=== PATIENT | female | born 1990 | race Caucasian/White ===

== ENCOUNTER 2017-07-17 23:44 | Emergency (ER) | payer OTHER ==
[~2017-07-17] VITALS: Ht 157.5 cm; Wt 71.0 kg
[2017-07-18] MEDS ORDERED: ULTRAM50 MG PO (01:16)
[2017-07-18] MEDS ORDERED: PREDNISONE20 MG PO (01:16)
[2017-07-18] MEDS ORDERED: FLEXERIL10 MG PO (01:16)
[2017-07-18] MEDS ORDERED: MOBIC15 MG PO (01:16)
[2017-07-18 01:51] VITALS: BP 138/82
[2017-07-19] MEDS ORDERED: ATARAX,VISTARIL50 MG PO (12:41)
== END 2017-07-18 01:54 | disposition home or self-care (01) ==
LOC: EME 23:44 → EXP 23:44
DX: K08.89 Other specified disorders of teeth and supporting structures (principal); M26.609 Unspecified temporomandibular joint disorder, unspecified side; B19.20 Unspecified viral hepatitis C without hepatic coma; Z91.040 Latex allergy status; Z88.8 Allergy status to other drugs, medicaments and biological substances
CPT/HCPCS: 99281; 99284; J1885; J7512

== ENCOUNTER 2017-07-19 11:37 | Emergency (ER) | payer OTHER ==
[~2017-07-19 11:37] MED LIST: FLEXERIL10 MG PO; MOBIC15 MG PO; PREDNISONE20 MG PO; ULTRAM50 MG PO
[2017-07-19 12:08] LABS: HEMATOCRIT 38.2 % (36.0-46.0); MCH 31.7 PG (29.0-34.0); MCHC 34.3 G/DL (30.0-36.0); MCV 92.5 FL (83-99); MEAN PLAT.VOLUME 9.9 uM^3 (9.5-12.4); PLATELET COUNT 231 K/uL (156-360); RBC DIS.WIDTH-CV 12.2 % (11.8-14.6); RBC DIS.WIDTH-SD 41.5 % (39-53); RED BLOOD COUNT 4.13 M/uL (3.80-5.20); WHITE BLOOD COUNT 9.5 K/uL (4.1-10.2)
[2017-07-19 12:14] LABS: INTER. NORMALIZED RATIO 0.9; PROTHROMBIN TIME 10.2 SEC (10.2-12.9)
[2017-07-19 12:16] LABS: CHLORIDE 110 mEq/L (99-109); SODIUM 141 mEq/L (136-147)
[2017-07-19 12:17] LABS: PTT 28.2 SEC (25-37)
[2017-07-19 12:18] LABS: GLUCOSE 73 mg/dL (70-99)
[2017-07-19 12:20] LABS: ANION GAP 7 MEQ/L (2-14); TOTAL BILIRUBIN 0.3 mg/dL (0.0-1.0)
[2017-07-19 12:22] LABS: ALKALINE PHOSPHATASE 47 IU/L (3-129); GFR ESTIMATE (CALCULATED) > 59 mL/min/
[2017-07-19 12:23] LABS: UREA NITROGEN (BUN) 18 mg/dL (9-23)
[2017-07-19 12:33] LABS: QUANTITATIVE HCG < 4.0 MIU/ML
[2017-07-19] MEDS ORDERED: ATARAX,VISTARIL50 MG PO (12:41)
[2017-07-19 12:50] VITALS: BP 149/99
== END 2017-07-19 12:51 | disposition home or self-care (01) ==
LOC: EME 11:37
PROVIDERS: Physician Assistant
DX: F41.9 Anxiety disorder, unspecified (principal); F20.9 Schizophrenia, unspecified; F31.9 Bipolar disorder, unspecified; F17.200 Nicotine dependence, unspecified, uncomplicated; Z91.040 Latex allergy status; Z88.8 Allergy status to other drugs, medicaments and biological substances
CPT/HCPCS: 80053; 84702; 85027; 85610; 85730; 99281; 99283

== ENCOUNTER 2018-02-28 17:11 | Emergency (ER) | payer SELFPAY ==
[~2018-02-28] VITALS: Ht 157.5 cm; Wt 76.0 kg
[~2018-02-28 17:11] MED LIST changes: +ATARAX,VISTARIL50 MG PO; +DEPAKOTE ER500 MG PO; +EFFEXOR XR37.5 MG PO; +NAPROXEN500 MG PO; +SUBOXONE 4 MG-1 EACH SL; +ZYPREXA5 MG PO
[2018-02-28 18:55] LABS: ALBUMIN 4.4 g/dL (3.2-4.8)
[2018-02-28 18:56] LABS: CHLORIDE 105 mEq/L (99-109); POTASSIUM 4.2 mEq/L (3.7-5.4); SODIUM 141 mEq/L (136-147)
[2018-02-28 18:58] LABS: GLUCOSE 95 mg/dL (70-99); TOTAL PROTEIN 6.7 g/dL (6.4-8.3)
[2018-02-28 19:00] LABS: TOTAL BILIRUBIN 0.2 mg/dL (0.0-1.0)
[2018-02-28 19:01] LABS: ALKALINE PHOSPHATASE 68 IU/L (3-129)
[2018-02-28 19:02] LABS: CREATININE 0.8 mg/dL (0.6-1.3); GFR ESTIMATE (CALCULATED) > 59 mL/min/
[2018-02-28 19:03] LABS: AST (GOT) 16 IU/L (2-34); HEMATOCRIT 39.1 % (36.0-46.0); HEMOGLOBIN 13.7 G/DL (11.9-15.5); MCH 30.7 PG (29.0-34.0); MCV 87.7 FL (83-99); RBC DIS.WIDTH-SD 38.6 % (39-53); RED BLOOD COUNT 4.46 M/uL (3.80-5.20); TROP-I INTERPRETATION NEGATIVE; TROPONIN-I < 0.01 ng/mL (0.0-0.30); UREA NITROGEN (BUN) 19 mg/dL (9-23)
[2018-02-28 19:04] LABS: ALT (GPT) 13 IU/L (3-49)
[2018-02-28 19:10] LABS: QUANTITATIVE HCG < 4.0 MIU/ML
[2018-02-28] MEDS ORDERED: XANAX0.25 MG PO (19:24)
[2018-02-28 19:52] VITALS: BP 124/75
[2018-02-28 20:03] LABS: PLAT.SUFFICIENCY ADEQUATE; PLATELET COUNT 182 K/uL (156-360)
== END 2018-02-28 19:53 | disposition home or self-care (01) ==
LOC: EME 17:11
PROVIDERS: Physician Assistant
DX: F41.9 Anxiety disorder, unspecified (principal); R07.9 Chest pain, unspecified; F17.200 Nicotine dependence, unspecified, uncomplicated; Z88.6 Allergy status to analgesic agent; Z88.5 Allergy status to narcotic agent; Z88.2 Allergy status to sulfonamides; Z91.040 Latex allergy status
CPT/HCPCS: 71046; 80053; 84484; 84702; 85027; 93005; 99281; 99284

== ENCOUNTER 2018-05-29 10:55 | Emergency (ER) | payer SELFPAY ==
[~2018-05-29] VITALS: Ht 157.5 cm; Wt 70.9 kg
[~2018-05-29 10:55] MED LIST changes: +XANAX0.25 MG PO
[2018-05-29 10:58] VITALS: BP 114/90
== END 2018-05-29 11:32 | disposition left against medical advice (07) ==
LOC: EME 10:55
DX: M79.673 Pain in unspecified foot (principal); Z53.21 Procedure and treatment not carried out due to patient leaving prior to being seen by health care provider